=== PATIENT | male | born 1960 | race Caucasian/White ===

== ENCOUNTER → 2023-08-17 | Outpatient (CLI) | payer OTHER, SELFPAY ==
--- NOTE | 2023-08-17 08:50 | RAD_ITS ---
INDICATION: RHEUMATOID ARTHRITIS EXAMINATION/TECHNIQUE: X-RAY - RIGHT XR Ankle 2 Views 2 VIEWS COMPARISON: No relevant prior comparison study available FINDINGS: SOFT TISSUES: No soft tissue swelling or gas. No radiopaque foreign body. BONES/JOINTS: No acute fracture or subluxation.. Normal alignment. Preservation of the joint space.. No sclerotic or destructive changes observed. RAD/Ankle 2 Views IMPRESSION: 1. No evidence fracture, malalignment or focal bony or joint space abnormality. 2. No periarticular bony erosions. Electronically Signed: Vladimir Cordero MD at 0:01 EDT ,
--- NOTE | 2023-08-17 08:50 | RAD_ITS ---
INDICATION: RHEUMATOID ARTHRITIS EXAMINATION/TECHNIQUE: X-RAY - LEFT XR Ankle 2 Views 2 VIEWS COMPARISON: No relevant prior comparison study available FINDINGS: SOFT TISSUES: No soft tissue swelling or gas. No radiopaque foreign body. BONES/JOINTS: No acute fracture or subluxation.. Normal alignment. Preservation of the joint space.. No sclerotic or destructive changes observed. Calcaneal spurs are present. RAD/Ankle 2 Views IMPRESSION: 1. No evidence fracture, malalignment or focal bony or joint space abnormality. 2. Calcaneal spurs are present at the calcaneal tendon attachment. Electronically Signed: Vladimir Cordero MD at 23:59 EDT ,
--- NOTE | 2023-08-17 08:50 | RAD_ITS ---
INDICATION: RHEUMATOID ARTHRITIS EXAMINATION/TECHNIQUE: X-RAY - XR Hips Bilateral with Pelvis when performed; Min 5 Views COMPARISON: No relevant prior comparison study available FINDINGS: PELVIC BONES: No displaced fracture, destructive or sclerotic lesions. Note that overlapping bowel shadows may however obscure fine detail. Sacroiliac joints are unremarkable. No widening of the pubic symphysis. No periarticular destructive bony process noted. HIPS: The articular structures are unremarkable. No displaced fracture seen in this frontal view. Mild osteophyte formation from the acetabular roof bilaterally. Joint space is maintained. SOFT TISSUES: No soft tissue swelling or gas. RAD/Hips B/L min 2 views w/ Pelvis IMPRESSION: 1. No evidence of displaced pelvic or hip fracture. 2. Minimal osteophyte formation from the acetabular roof bilaterally. Joint space however maintained. No fracture or dislocation. Electronically Signed: Vladimir Cordero MD at 0:05 EDT ,
--- NOTE | 2023-08-17 08:50 | RAD_ITS ---
INDICATION: RHEUMATOID ARTHRITIS EXAMINATION/TECHNIQUE: X-RAY - RIGHT XR Elbow 2 Views COMPARISON: None. FINDINGS: SOFT TISSUES: No soft tissue swelling or gas. No radiopaque foreign body. BONES/JOINTS: There is no displacement of the anterior or posterior fat pads. No acute fracture or subluxation. Normal alignment. Preservation of the joint space. No sclerotic or destructive changes observed. Marginal osteophytes are present arising from the olecranon and the coronoid process. RAD/Elbow 2 Views IMPRESSION: 1. No evidence fracture, malalignment or focal bony or joint space abnormality. 2. No destructive bony process. Multiple osteophytes are present however. Electronically Signed: Vladimir Cordero MD at 23:57 EDT ,
--- NOTE | 2023-08-17 08:50 | RAD_ITS ---
INDICATION: RHEUMATOID ARTHRITIS EXAMINATION/TECHNIQUE: X-RAY - LEFT XR Elbow 2 Views COMPARISON: : No relevant prior comparison study available FINDINGS: SOFT TISSUES: No soft tissue swelling or gas. No radiopaque foreign body. BONES/JOINTS: There is no displacement of the anterior or posterior fat pads. No acute fracture or subluxation. Normal alignment. Preservation of the joint space. No sclerotic or destructive changes observed. Spur at the olecranon is noted. RAD/Elbow 2 Views IMPRESSION: 1. No evidence fracture, malalignment or focal bony or joint space abnormality. 2. Prominent olecranon osteophyte. Electronically Signed: Vladimir Cordero MD at 0:00 EDT ,
== END | disposition home or self-care (01) ==
PROVIDERS: Referring Provider Chiropractor; Visit Provider Chiropractor
DX: M06.9 Rheumatoid arthritis, unspecified (principal)
CPT/HCPCS: 73070; 73521; 73600